=== PATIENT | female | born 1940 | race Caucasian/White ===

== ENCOUNTER 2022-06-19 08:17 | Inpatient (IN) ==
[2022-06-19] MEDS ORDERED: 0.9 % Sodium Chloride 1,000 ML IVC ONE (09:09)
[2022-06-19] MEDS ORDERED: Iopamidol - 370 500 ML MLS IVP ONE (09:16)
[2022-06-19 09:56] LABS: Basophils # 0.1 K/mcL (0.0-0.2); Basophils % 0.6 %; Eosinophils # 0.9 K/mcL (0.0-0.6); Eosinophils % 8.2 %; Hematocrit 35.1 % (35.3-44.9); Immature Granulocytes % 0.4 % (0-4); Lymphocytes % 17.9 %; Mean Corpuscular HGB Conc 31.3 g/dL (31.6-35.5); Mean Corpuscular Hemoglobin 27.2 pg (28.0-33.3); Mean Corpuscular Volume 86.9 fL (83.0-100.0); Mean Platelet Volume 10.4 fL (9.4-12.4); Monocytes # 1.4 K/mcL (0.0-1.3); Monocytes % 12.5 %; Neutrophils # 6.7 K/mcL (1.6-8.9); Platelet Count 265 K/mcL (140-400); Red Blood Count 4.04 M/mcL (3.82-4.97); Segmented Neutrophils % 60.4 %; White Blood Count 11.1 K/mcL (4.3-11.1)
[2022-06-19 10:25] LABS: BUN/Creatinine Ratio 26 (6-26); Blood Urea Nitrogen 27 mg/dL (8-23); Calcium 9.1 mg/dL (8.6-10.3); Carbon Dioxide 28 mEq/L (23-29); Chloride 105 mEq/L (98-107); Glucose 182 mg/dL (70-105); Magnesium 1.5 mg/dL (1.6-2.6); Osmolality,Calculated 300 (280-300); Potassium 3.7 mEq/L (3.5-5.1); Sodium 140 mEq/L (136-145); Troponin I < 0.03 ng/mL (< 0.04)
[2022-06-19 12:16] LABS: Bilirubin,Urine Negative (Negative); Blood,Urine Negative (Negative); Clarity,Urine Clear (Clear); Color,Urine Light-Yellow (Yellow); Glucose,Urine (UA) Normal (Normal); Ketones,Urine Negative (Negative); Leukocyte Esterase,Urine Moderate (Negative); Mucus,Urine Few per lpf (None-Few); Nitrite,Urine Positive (Negative); PH,Urine 5.5 pH Units (5.0-8.0); Protein,Urine Negative (Neg-Trace); Specific Gravity,Urine > 1.030 (1.010-1.025); Urobilinogen,Urine Normal (Normal)
[2022-06-19 12:53] LABS: Influenza A PCR Negative (Negative); Influenza B PCR Negative (Negative); Resp. Syncytial Virus PCR Negative (Negative); SARS-CoV-2 by PCR (In House) Negative (Negative)
[2022-06-19] MEDS ORDERED: D5% in Water 1,000 ML IVC PRN (16:21)
[2022-06-19] MEDS ORDERED: Naloxone 0.4 MG/ML INJ IVP PRN (16:21)
[2022-06-19] MEDS ORDERED: Dextrose Gel 15 GM/37.5 ML TUBE PO PRN ×2 (16:21)
[2022-06-19] MEDS ORDERED: *HR* Dextrose 50 % in Water (Syg) 50 ML SYRINGE IVP PRN (16:21)
[2022-06-19] MEDS: 0.9 % Sodium Chloride w KCl 20 MEQ/1,000 ML MLS IVC SCH (17:56)
[2022-06-19] MEDS: Insulin LISPRO 300 UNITS/3 ML VIAL SUBQ SCH ×2 (17:57→22:05)
[2022-06-19 19:39] LABS: Estimated Average Glucose 163 mg/dl; Hemoglobin A1C 7.3 %
[2022-06-19] MEDS: Temazepam 15 MG CAPSULE PO SCH (23:55)
[2022-06-20 04:50] LABS: Basophils % 0.3 %; Eosinophils # 0.6 K/mcL (0.0-0.6); Eosinophils % 6.7 %; Hematocrit 32.3 % (35.3-44.9); Hemoglobin 9.8 g/dL (11.5-15.4); Immature Granulocytes % 0.4 % (0-4); Lymphocytes % 21.5 %; Mean Corpuscular HGB Conc 30.3 g/dL (31.6-35.5); Mean Corpuscular Hemoglobin 26.8 pg (28.0-33.3); Mean Corpuscular Volume 88.3 fL (83.0-100.0); Mean Platelet Volume 10.1 fL (9.4-12.4); Monocytes # 1.1 K/mcL (0.0-1.3); Neutrophils # 5.4 K/mcL (1.6-8.9); Platelet Count 257 K/mcL (140-400); Red Blood Count 3.66 M/mcL (3.82-4.97); Red Cell Distribution Width 13.9 % (11.5-14.5); Segmented Neutrophils % 59.1 %; White Blood Count 9.1 K/mcL (4.3-11.1)
[2022-06-20 05:13] LABS: Albumin 3.2 g/dL (3.5-5.7); Albumin/Globulin Ratio 1.5 (1.1-2.2); Bilirubin,Total 0.5 mg/dL (0.3-1.0); Calcium 8.3 mg/dL (8.6-10.3); Globulin 2.2 g/dL (2.4-3.5); Magnesium 1.3 mg/dL (1.6-2.6); Phosphorous 3.5 mg/dL (2.7-4.5); Potassium 4.1 mEq/L (3.5-5.1); Total Protein 5.4 g/dL (6.4-8.9)
[2022-06-20] MEDS: Insulin LISPRO 300 UNITS/3 ML VIAL SUBQ SCH ×4 (07:30→19:53)
[2022-06-20] MEDS: cefTRIAXone 1,000 MG in 0.9 % Sodium Chloride Mini Bag 100 ML IVPB SCH (09:19)
[2022-06-20] MEDS: Azithromycin 250 MG TABLET PO SCH (11:45)
[2022-06-20] MEDS: Pantoprazole 40 MG VIAL IVP SCH (15:13)
[2022-06-20] MEDS: 0.9 % Sodium Chloride w KCl 20 MEQ/1,000 ML MLS IVC SCH (15:18)
[2022-06-20] MEDS: Ipratropium/Albuterol Neb 3 ML IH SCH ×2 (16:18→22:39)
[2022-06-20] MEDS: FAMOTIDINE 40 MG/5 ML PO SCH (19:53)
[2022-06-20] MEDS: Temazepam 15 MG CAPSULE PO SCH (19:53)
[2022-06-20] MEDS: Benzonatate 100 MG CAPSULE PO PRN (19:59)
[2022-06-21] MEDS: Ipratropium/Albuterol Neb 3 ML IH SCH ×4 (04:30→22:26)
[2022-06-21] MEDS: Benzonatate 100 MG CAPSULE PO PRN (05:54)
[2022-06-21 06:22] LABS: % Iron Saturation 7 % (15-50); Iron 16 mcg/dL (50-170); Transferrin 163 mg/dL (203-362)
[2022-06-21 06:50] LABS: Folate > 22.3 ng/mL (3.0-16.0); Vitamin B12 > 1500 pg/mL (250-1100)
[2022-06-21] MEDS: Insulin LISPRO 300 UNITS/3 ML VIAL SUBQ SCH ×4 (07:16→20:47)
[2022-06-21] MEDS: cefTRIAXone 1,000 MG in 0.9 % Sodium Chloride Mini Bag 100 ML IVPB SCH (08:22)
[2022-06-21] MEDS: Pantoprazole 40 MG VIAL IVP SCH (08:24)
[2022-06-21] MEDS: Azithromycin 250 MG TABLET PO SCH (08:26)
[2022-06-21] MEDS: FAMOTIDINE 40 MG/5 ML PO SCH ×2 (08:48→20:47)
[2022-06-21] MEDS ORDERED: E-Z-HD (BARIUM SULF) SUSPENSION PO ONE (11:45)
[2022-06-21] MEDS ORDERED: E-Z-PAQUE (BARIUM SULF) SUSP 1 BOTTLE PO ONE (11:45)
[2022-06-21] MEDS: Temazepam 15 MG CAPSULE PO SCH (20:47)
[2022-06-22] MEDS: Ipratropium/Albuterol Neb 3 ML IH SCH ×2 (03:52→10:19)
[2022-06-22] MEDS: Insulin LISPRO 300 UNITS/3 ML VIAL SUBQ SCH ×4 (07:15→20:33)
[2022-06-22] MEDS ORDERED: Furosemide 20 MG/2 ML VIAL IVP ONE (08:49)
[2022-06-22] MEDS: Azithromycin 250 MG TABLET PO SCH (09:51)
[2022-06-22] MEDS: Pantoprazole 40 MG VIAL IVP SCH (09:56)
[2022-06-22] MEDS: cefTRIAXone 1,000 MG in 0.9 % Sodium Chloride Mini Bag 100 ML IVPB SCH (09:58)
[2022-06-22] MEDS: FAMOTIDINE 40 MG/5 ML PO SCH ×2 (10:58→20:26)
[2022-06-22] MEDS: *HR* Metoprolol 5 MG/5 ML VIAL IVP PRN ×2 (12:49→20:28)
[2022-06-22] MEDS: Magnesium Oxide 400 MG TABLET PO SCH (14:00)
[2022-06-22 16:28] LABS: Calcium 8.4 mg/dL (8.6-10.3); Magnesium 1.2 mg/dL (1.6-2.6); Potassium 3.9 mEq/L (3.5-5.1)
[2022-06-22] MEDS ORDERED: *HR* Heparin 5,000 UNIT/ML VIAL IVP ONE (17:16)
[2022-06-22] MEDS ORDERED: *HR* Heparin 5,000 UNIT/ML VIAL IVP PRN ×2 (17:16)
[2022-06-22 17:49] LABS: Hematocrit 34.6 % (35.3-44.9); Hemoglobin 10.7 g/dL (11.5-15.4); Mean Corpuscular HGB Conc 30.9 g/dL (31.6-35.5); Mean Corpuscular Hemoglobin 27.2 pg (28.0-33.3); Platelet Count 326 K/mcL (140-400); Red Blood Count 3.93 M/mcL (3.82-4.97); White Blood Count 14.2 K/mcL (4.3-11.1)
[2022-06-22] MEDS ORDERED: *HR* Digoxin 0.25 MG TABLET PO SCH (18:00)
[2022-06-22 18:05] LABS: Heparin anti-factor XA UFH < 0.04 IU/mL (0.30-0.70); INR 1.3; Prothrombin Time 14.6 Seconds (9.4-12.1)
[2022-06-22 18:07] LABS: Activated Partial Thrombo Time 32.2 Seconds (26.0-36.0)
[2022-06-22] MEDS: Heparin 25,000UNIT/250ML 1/2NS 25,000 UNIT/250 ML IV.SOLN IVC SCH (18:23)
[2022-06-22] MEDS: *HR* Digoxin 0.5 MG/2 ML AMPUL IVP SCH (18:46)
[2022-06-22 18:49] LABS: Troponin I 0.03 ng/mL (< 0.04)
[2022-06-22] MEDS: Temazepam 15 MG CAPSULE PO SCH (20:26)
[2022-06-23] MEDS: *HR* Digoxin 0.5 MG/2 ML AMPUL IVP SCH ×3 (00:33→13:02)
[2022-06-23] MEDS: Insulin LISPRO 300 UNITS/3 ML VIAL SUBQ SCH ×4 (09:07→21:09)
[2022-06-23] MEDS: cefTRIAXone 1,000 MG in 0.9 % Sodium Chloride Mini Bag 100 ML IVPB SCH (09:14)
[2022-06-23] MEDS: FAMOTIDINE 40 MG/5 ML PO SCH ×2 (09:15→21:09)
[2022-06-23] MEDS: Azithromycin 250 MG TABLET PO SCH (09:16)
[2022-06-23] MEDS: Magnesium Oxide 400 MG TABLET PO SCH (09:16)
[2022-06-23] MEDS: Ondansetron 4 MG/2 ML VIAL IVP PRN (10:29)
[2022-06-23] MEDS ORDERED: Furosemide 20 MG/2 ML VIAL IVP ONE (11:46)
[2022-06-23] MEDS ORDERED: *HR* Enoxaparin 40 MG/0.4 ML SYRINGE SQ SCH (12:38)
[2022-06-23] MEDS: *HR* Metoprolol 5 MG/5 ML VIAL IVP PRN (15:27)
[2022-06-23] MEDS ORDERED: Warfarin perPT PO PRN (18:00)
[2022-06-23 18:24] LABS: INR 1.2; Prothrombin Time 13.7 Seconds (9.4-12.1)
[2022-06-23] MEDS ORDERED: *HR* Warfarin 2.5 MG TABLET PO ONE (18:52)
[2022-06-23] MEDS ORDERED: *HR* Metoprolol 5 MG/5 ML VIAL IVP ONE (18:55)
[2022-06-23] MEDS: Temazepam 15 MG CAPSULE PO SCH (21:09)
[2022-06-23] MEDS ORDERED: Albumin 25% 25gram/100mL 25 GM/100 ML IV.SOLN IVPB ONE (22:47)
[2022-06-24] MEDS: Heparin 25,000UNIT/250ML 1/2NS 25,000 UNIT/250 ML IV.SOLN IVC SCH (02:16)
[2022-06-24 06:15] LABS: Basophils % 0.5 %; Eosinophils # 0.8 K/mcL (0.0-0.6); Eosinophils % 10.6 %; Hematocrit 28.4 % (35.3-44.9); Immature Granulocytes % 0.6 % (0-4); Lymphocytes # 2.2 K/mcL (0.6-4.6); Lymphocytes % 27.9 %; Mean Corpuscular HGB Conc 29.9 g/dL (31.6-35.5); Mean Corpuscular Hemoglobin 26.6 pg (28.0-33.3); Mean Platelet Volume 10.2 fL (9.4-12.4); Monocytes % 12.6 %; Neutrophils # 3.8 K/mcL (1.6-8.9); Platelet Count 272 K/mcL (140-400); Red Blood Count 3.19 M/mcL (3.82-4.97); Red Cell Distribution Width 13.7 % (11.5-14.5); Segmented Neutrophils % 47.8 %
[2022-06-24 06:18] LABS: Hemoglobin 8.5 g/dL (11.5-15.4)
[2022-06-24 06:24] LABS: INR 1.3
[2022-06-24 06:39] LABS: Albumin 3.4 g/dL (3.5-5.7); Albumin/Globulin Ratio 1.9 (1.1-2.2); Bilirubin,Total 0.4 mg/dL (0.3-1.0); Calcium 8.3 mg/dL (8.6-10.3); Globulin 1.8 g/dL (2.4-3.5); Magnesium 1.9 mg/dL (1.6-2.6); Phosphorous 3.7 mg/dL (2.7-4.5); Potassium 3.8 mEq/L (3.5-5.1); Total Protein 5.2 g/dL (6.4-8.9)
[2022-06-24] MEDS ORDERED: Furosemide 20 MG/2 ML VIAL IVP ONE (08:16)
[2022-06-24] MEDS: Azithromycin 250 MG TABLET PO SCH (09:28)
[2022-06-24] MEDS: Magnesium Oxide 400 MG TABLET PO SCH (09:28)
[2022-06-24] MEDS: Insulin LISPRO 300 UNITS/3 ML VIAL SUBQ SCH ×4 (09:30→20:12)
[2022-06-24] MEDS: FAMOTIDINE 40 MG/5 ML PO SCH ×2 (09:36→20:11)
[2022-06-24] MEDS: Ondansetron 4 MG/2 ML VIAL IVP PRN (10:57)
[2022-06-24] MEDS ORDERED: *HR* Warfarin 2.5 MG TABLET PO ONE (18:00)
[2022-06-24] MEDS: Temazepam 15 MG CAPSULE PO SCH (20:09)
[2022-06-25 03:20] LABS: INR 1.4; Prothrombin Time 15.5 Seconds (9.4-12.1)
[2022-06-25] MEDS: Insulin LISPRO 300 UNITS/3 ML VIAL SUBQ SCH ×4 (08:01→21:02)
[2022-06-25 09:13] LABS: Hematocrit 33.6 % (35.3-44.9); Hemoglobin 9.9 g/dL (11.5-15.4); Mean Corpuscular HGB Conc 29.5 g/dL (31.6-35.5); Mean Corpuscular Hemoglobin 26.5 pg (28.0-33.3); Mean Corpuscular Volume 89.8 fL (83.0-100.0); Mean Platelet Volume 9.6 fL (9.4-12.4); Platelet Count 269 K/mcL (140-400); Red Blood Count 3.74 M/mcL (3.82-4.97); Red Cell Distribution Width 13.3 % (11.5-14.5); White Blood Count 8.2 K/mcL (4.3-11.1)
[2022-06-25] MEDS: Magnesium Oxide 400 MG TABLET PO SCH (09:28)
[2022-06-25] MEDS: Azithromycin 250 MG TABLET PO SCH (09:28)
[2022-06-25] MEDS: FAMOTIDINE 40 MG/5 ML PO SCH (09:29)
[2022-06-25] MEDS: Megestrol Acetate 400 MG/10 ML UDC PO SCH (09:30)
[2022-06-25] MEDS: Heparin 25,000UNIT/250ML 1/2NS 25,000 UNIT/250 ML IV.SOLN IVC SCH ×2 (16:36→16:37)
[2022-06-25] MEDS ORDERED: *HR* Warfarin 2.5 MG TABLET PO ONE (18:00)
[2022-06-25] MEDS ORDERED: FAMOTIDINE 40 MG/5 ML PO SCH (21:00)
[2022-06-25] MEDS: Temazepam 15 MG CAPSULE PO SCH (21:00)
[2022-06-26 02:27] LABS: Basophils % 0.5 %; Eosinophils # 0.7 K/mcL (0.0-0.6); Eosinophils % 7.7 %; Hematocrit 30.2 % (35.3-44.9); Hemoglobin 9.3 g/dL (11.5-15.4); Immature Granulocytes % 1.4 % (0-4); Lymphocytes # 2.4 K/mcL (0.6-4.6); Lymphocytes % 28.1 %; Mean Corpuscular HGB Conc 30.8 g/dL (31.6-35.5); Mean Corpuscular Hemoglobin 27.4 pg (28.0-33.3); Mean Corpuscular Volume 88.8 fL (83.0-100.0); Mean Platelet Volume 9.8 fL (9.4-12.4); Monocytes # 1.2 K/mcL (0.0-1.3); Monocytes % 14.6 %; Platelet Count 251 K/mcL (140-400); Red Cell Distribution Width 13.5 % (11.5-14.5); Segmented Neutrophils % 47.7 %; White Blood Count 8.4 K/mcL (4.3-11.1)
[2022-06-26 02:47] LABS: Albumin 3.3 g/dL (3.5-5.7); Albumin/Globulin Ratio 1.7 (1.1-2.2); Bilirubin,Total 0.4 mg/dL (0.3-1.0); Calcium 8.8 mg/dL (8.6-10.3); Total Protein 5.3 g/dL (6.4-8.9)
[2022-06-26 02:49] LABS: Prothrombin Time 22.4 Seconds (9.4-12.1)
[2022-06-26] MEDS: Insulin LISPRO 300 UNITS/3 ML VIAL SUBQ SCH ×4 (08:27→21:16)
[2022-06-26] MEDS: Megestrol Acetate 400 MG/10 ML UDC PO SCH (09:26)
[2022-06-26] MEDS: Magnesium Oxide 400 MG TABLET PO SCH (09:26)
[2022-06-26] MEDS: FAMOTIDINE 40 MG/5 ML PO SCH ×2 (09:34→18:48)
[2022-06-26 13:50] LABS: ABG Base Excess 5 mEq/L (-2 to 3); ABG HCO3 29 mEq/L (21-27); ABG Oxygen Saturation 99 % (95-98); ABG PCO2 44 mmHg (35-45); ABG PH 7.43 pH Units (7.32-7.45); ABG PO2 158 mmHg (85-104); ABG TCO2 31 mEq/L (20-26)
[2022-06-26] MEDS ORDERED: Lidocaine Viscous Oral Soln 15 ML SOLUTION MM PRN (14:26)
[2022-06-26] MEDS ORDERED: 0.9 % Sodium Chloride 500 ML IVC ONE (14:27)
[2022-06-26] MEDS: *HR* Midazolam HCl 5 MG/5 ML VIAL IVP PRN ×2 (15:00→15:02)
[2022-06-26] MEDS: *HR* FentaNYL (PF) 100 MCG/2 ML VIAL IVP PRN ×2 (15:00→15:02)
[2022-06-26] MEDS: Benzonatate 100 MG CAPSULE PO PRN (18:48)
[2022-06-26] MEDS: Temazepam 15 MG CAPSULE PO SCH (21:15)
[2022-06-26] MEDS: Heparin 25,000UNIT/250ML 1/2NS 25,000 UNIT/250 ML IV.SOLN IVC SCH (22:26)
[2022-06-27 06:38] LABS: Heparin anti-factor XA UFH 0.48 IU/mL (0.30-0.70)
[2022-06-27 06:39] LABS: INR 2.1; Prothrombin Time 22.8 Seconds (9.4-12.1)
[2022-06-27] MEDS: Insulin LISPRO 300 UNITS/3 ML VIAL SUBQ SCH ×4 (07:29→19:39)
[2022-06-27] MEDS: Magnesium Oxide 400 MG TABLET PO SCH (09:34)
[2022-06-27] MEDS: FAMOTIDINE 40 MG/5 ML PO SCH ×2 (09:35→19:39)
[2022-06-27] MEDS: Megestrol Acetate 400 MG/10 ML UDC PO SCH (11:08)
[2022-06-27] MEDS: Ipratropium/Albuterol Neb 3 ML IH PRN (14:24)
[2022-06-27] MEDS: Temazepam 15 MG CAPSULE PO SCH (19:38)
[2022-06-28 06:34] LABS: Basophils % 0.3 %; Eosinophils # 0.5 K/mcL (0.0-0.6); Eosinophils % 4.4 %; Hematocrit 28.2 % (35.3-44.9); Hemoglobin 8.5 g/dL (11.5-15.4); Lymphocytes # 2.5 K/mcL (0.6-4.6); Lymphocytes % 21.9 %; Mean Corpuscular HGB Conc 30.1 g/dL (31.6-35.5); Mean Corpuscular Volume 89.5 fL (83.0-100.0); Monocytes # 1.9 K/mcL (0.0-1.3); Monocytes % 16.2 %; Neutrophils # 6.5 K/mcL (1.6-8.9); Platelet Count 260 K/mcL (140-400); Red Blood Count 3.15 M/mcL (3.82-4.97); Red Cell Distribution Width 14.2 % (11.5-14.5); Segmented Neutrophils % 56.2 %; White Blood Count 11.5 K/mcL (4.3-11.1)
[2022-06-28 06:35] LABS: Heparin anti-factor XA UFH 0.4 IU/mL (0.30-0.70); INR 1.8; Prothrombin Time 20.1 Seconds (9.4-12.1)
[2022-06-28 06:36] LABS: Calcium 8.9 mg/dL (8.6-10.3); Potassium 3.9 mEq/L (3.5-5.1)
[2022-06-28] MEDS: Heparin 25,000UNIT/250ML 1/2NS 25,000 UNIT/250 ML IV.SOLN IVC SCH (07:03)
[2022-06-28] MEDS: Insulin LISPRO 300 UNITS/3 ML VIAL SUBQ SCH ×4 (07:15→20:16)
[2022-06-28] MEDS: Magnesium Oxide 400 MG TABLET PO SCH (08:48)
[2022-06-28] MEDS: FAMOTIDINE 40 MG/5 ML PO SCH ×2 (08:48→20:31)
[2022-06-28] MEDS ORDERED: 0.9 % Sodium Chloride 2,000 ML ONE (12:54)
[2022-06-28] MEDS ORDERED: Iopamidol - 370 200 ML INFUS..BTL ONE (12:54)
[2022-06-28] MEDS ORDERED: *HR* Heparin 10,000 UNIT/10 ML VIAL ONE (12:54)
[2022-06-28] MEDS ORDERED: Nitroglycerin 1,000 MCG/5 ML VIAL IV ONE (12:54)
[2022-06-28] MEDS ORDERED: Heparin 1,000 UNITS/500 mL 500 ML ONE (12:54)
[2022-06-28] MEDS: Megestrol Acetate 400 MG/10 ML UDC PO SCH (13:53)
[2022-06-28] MEDS ORDERED: *HR* FentaNYL (PF) 100 MCG/2 ML VIAL ONE (14:24)
[2022-06-28] MEDS ORDERED: *HR* Midazolam HCl 2 MG/2 ML VIAL ONE (14:24)
[2022-06-28] MEDS: Ipratropium/Albuterol Neb 3 ML IH PRN (16:01)
[2022-06-28] MEDS: *HR* Enoxaparin 60 MG/0.6 ML SYRINGE SQ SCH (18:24)
[2022-06-28] MEDS: Temazepam 15 MG CAPSULE PO SCH (20:12)
[2022-06-29] MEDS: *HR* Enoxaparin 60 MG/0.6 ML SYRINGE SQ SCH (05:12)
[2022-06-29] MEDS: Insulin LISPRO 300 UNITS/3 ML VIAL SUBQ SCH ×2 (07:36→12:31)
[2022-06-29] MEDS: Magnesium Oxide 400 MG TABLET PO SCH (09:29)
[2022-06-29] MEDS: Megestrol Acetate 400 MG/10 ML UDC PO SCH (09:34)
[2022-06-29 09:37] LABS: Hematocrit 28.7 % (35.3-44.9); Hemoglobin 8.6 g/dL (11.5-15.4)
[2022-06-29] MEDS: FAMOTIDINE 40 MG/5 ML PO SCH (11:24)
[2022-06-29 14:12] VITALS: BP 126/55; PULSE 82; TEMP 97.4; O2SAT 99
== END 2022-06-29 15:20 | DRG 871 ==
LOC: EMEROOARM 08:17 → 3BNU 08:17 → SUATTDRO 17:36 → 3BNU 18:07 → SUATTDRO 06-23 18:54
PROVIDERS: ADMIT Pharmacist; ATTEND Registered Nurse

== ENCOUNTER 2022-07-04 05:40 | Inpatient (IN) ==
[2022-07-04] MEDS ORDERED: CeFAZolin Syr 2,000MG/20 ML 2,000 MG/20 ML SYRINGE IVPB ONE (06:00)
[2022-07-04] MEDS ORDERED: Papaverine 60 MG/2 ML VIAL IVP ONE (06:00)
[2022-07-04] MEDS ORDERED: Chlorhexidine Rinse 15 ML MOUTHWASH MM SCH (06:00)
[2022-07-04] MEDS ORDERED: Aspirin 81 MG TAB.CHEW PO ONE (06:00)
[2022-07-04] MEDS ORDERED: Vancomycin 1,000 MG VIAL ONE (06:01)
[2022-07-04] MEDS ORDERED: NiCARdipine 2.5 MG/10 ML Syringe IVPB ONE (06:04)
[2022-07-04] MEDS ORDERED: DOBUTamine 1,000 MG/250 ML BAG ONE (06:04)
[2022-07-04] MEDS ORDERED: *HR* Propofol 200 MG/20 ML VIAL IVP ONE (06:07)
[2022-07-04] MEDS ORDERED: *HR* FentaNYL (PF) 1,000 MCG/20 ML VIAL ONE (06:07)
[2022-07-04] MEDS ORDERED: *HR* Midazolam HCl 5 MG/5 ML VIAL IVP ONE (06:07)
[2022-07-04] MEDS ORDERED: *HR* Rocuronium Bromide 50 MG/5 ML VIAL ONE (06:09)
[2022-07-04] MEDS ORDERED: Famotidine 20 MG/2 ML VIAL ONE (06:09)
[2022-07-04] MEDS ORDERED: Tranexamic Acid 1,000 MG/10 ML VIAL ONE (06:09)
[2022-07-04] MEDS ORDERED: *HR* Magnesium Sulfate 1 GM/2 ML VIAL ONE (06:09)
[2022-07-04] MEDS ORDERED: Lidocaine 2% Syringe 100 MG/5 ML ONE (06:10)
[2022-07-04] MEDS ORDERED: Heparin 1,000 UNITS/500 mL 500 ML ONE ×2 (06:18→07:13)
[2022-07-04] MEDS ORDERED: Iopamidol - 300 50 ML VIAL ONE (06:18)
[2022-07-04] MEDS ORDERED: *HR* Metoprolol 5 MG/5 ML VIAL IVP ONE (06:27)
[2022-07-04 07:00] LABS: Basophils # 0.1 K/mcL (0.0-0.2); Basophils % 0.6 %; Eosinophils # 0.4 K/mcL (0.0-0.6); Eosinophils % 2.9 %; Hematocrit 32.2 % (35.3-44.9); Hemoglobin 9.9 g/dL (11.5-15.4); Immature Granulocytes % 1.8 % (0-4); Lymphocytes # 2.1 K/mcL (0.6-4.6); Lymphocytes % 16.4 %; Mean Corpuscular HGB Conc 30.7 g/dL (31.6-35.5); Mean Corpuscular Hemoglobin 27.5 pg (28.0-33.3); Mean Corpuscular Volume 89.4 fL (83.0-100.0); Mean Platelet Volume 10.1 fL (9.4-12.4); Monocytes % 15.6 %; Platelet Count 333 K/mcL (140-400); Red Cell Distribution Width 15.2 % (11.5-14.5); Segmented Neutrophils % 62.7 %; White Blood Count 12.7 K/mcL (4.3-11.1)
[2022-07-04] MEDS ORDERED: Ringers Solution, Lactated 1,000 ML IVC SCH (07:00)
[2022-07-04] MEDS ORDERED: Heparin 15,000 UNIT in 0.9 % Sodium Chloride 500 ML IR ONE (07:00)
[2022-07-04] MEDS ORDERED: del Nido Cardioplegia Solution PF ONE ×2 (07:00)
[2022-07-04] MEDS ORDERED: Buckersberg's Blood Cardioplegia PF ONE (07:00)
[2022-07-04] MEDS ORDERED: Norepinephrine 4 MG in 0.9 % Sodium Chloride 250 ML IVC PRN (07:00)
[2022-07-04 07:22] LABS: INR 1.2; Prothrombin Time 13.1 Seconds (9.4-12.1)
[2022-07-04] MEDS ORDERED: Ondansetron 4 MG/2 ML VIAL IVP PRN (09:57)
[2022-07-04] MEDS ORDERED: MOM Conc 10 ML UD.LIQ PO PRN (09:57)
[2022-07-04] MEDS ORDERED: Acetaminophen 325 MG TABLET PO PRN (09:57)
[2022-07-04] MEDS ORDERED: Naloxone 0.4 MG/ML INJ IVP PRN (09:57)
[2022-07-04] MEDS ORDERED: Mag Hydrox/Al Hydrox/Simeth 30 ML UDC PO PRN (09:57)
[2022-07-04] MEDS ORDERED: Dextrose Gel 15 GM/37.5 ML TUBE PO PRN ×2 (09:59)
[2022-07-04] MEDS ORDERED: D5% in Water 1,000 ML IVC PRN (09:59)
[2022-07-04] MEDS ORDERED: *HR* Dextrose 50 % in Water (Syg) 50 ML SYRINGE IVP PRN (09:59)
[2022-07-04 10:15] LABS: Calcium 8.7 mg/dL (8.6-10.3); Potassium 4.1 mEq/L (3.5-5.1)
[2022-07-04] MEDS ORDERED: 0.9 % Sodium Chloride 1,000 ML IVC SCH (10:45)
[2022-07-04] MEDS: Insulin LISPRO 300 UNITS/3 ML VIAL SUBQ SCH ×2 (12:54→17:06)
[2022-07-04] MEDS: *HR* Enoxaparin 40 MG/0.4 ML SYRINGE SQ SCH ×2 (13:03→21:49)
[2022-07-04 13:19] LABS: Bacteria,Urine Few per hpf (None-Few); Bilirubin,Urine Negative (Negative); Blood,Urine Negative (Negative); Clarity,Urine Clear (Clear); Color,Urine Light-Yellow (Yellow); Glucose,Urine (UA) Normal (Normal); Ketones,Urine Negative (Negative); Leukocyte Esterase,Urine Small (Negative); Mucus,Urine Few per lpf (None-Few); Nitrite,Urine Negative (Negative); PH,Urine 6.5 pH Units (5.0-8.0); Protein,Urine Trace mg/dL (Neg-Trace); RBC,Urine 0-3 per hpf (0-3); Specific Gravity,Urine 1.007 (1.010-1.025); Squamous Epithelial Cell,Urine Few per hpf (None-Few); Urobilinogen,Urine Normal (Normal); WBC,Urine 15-30 per hpf (0-3)
[2022-07-04] MEDS ORDERED: Insulin LISPRO 300 UNITS/3 ML VIAL SUBQ SCH (21:00)
[2022-07-04] MEDS: Chlorhexidine Rinse 15 ML MOUTHWASH MM SCH (21:49)
[2022-07-04 22:56] LABS: Influenza A PCR Negative (Negative); Influenza B PCR Negative (Negative); Resp. Syncytial Virus PCR Negative (Negative)
[2022-07-04 22:58] LABS: SARS-CoV-2 by PCR (In House) Negative (Negative)
[2022-07-05 02:22] LABS: Hematocrit 29.6 % (35.3-44.9); Hemoglobin 8.7 g/dL (11.5-15.4); Mean Corpuscular HGB Conc 29.4 g/dL (31.6-35.5); Mean Corpuscular Hemoglobin 26.6 pg (28.0-33.3); Mean Corpuscular Volume 90.5 fL (83.0-100.0); Mean Platelet Volume 10.1 fL (9.4-12.4); Platelet Count 318 K/mcL (140-400); Red Blood Count 3.27 M/mcL (3.82-4.97); Red Cell Distribution Width 15.6 % (11.5-14.5); White Blood Count 14.8 K/mcL (4.3-11.1)
[2022-07-05 02:40] LABS: Calcium 8.5 mg/dL (8.6-10.3); Potassium 3.5 mEq/L (3.5-5.1)
[2022-07-05] MEDS: Chlorhexidine Rinse 15 ML MOUTHWASH MM SCH ×3 (05:48→19:59)
[2022-07-05] MEDS ORDERED: DOBUTamine 1,000 MG/250 ML BAG ONE (05:54)
[2022-07-05] MEDS ORDERED: Acetaminophen IV 0 MG/0 ML BAG IVPB ONE (05:54)
[2022-07-05] MEDS ORDERED: NiCARdipine 2.5 MG/10 ML Syringe IVPB ONE (05:54)
[2022-07-05] MEDS ORDERED: *HR* Propofol 200 MG/20 ML VIAL IVP ONE (06:00)
[2022-07-05] MEDS ORDERED: CeFAZolin Syr 2,000MG/20 ML 2,000 MG/20 ML SYRINGE IVPB ONE ×2 (06:00→06:05)
[2022-07-05] MEDS ORDERED: *HR* FentaNYL (PF) 1,000 MCG/20 ML VIAL ONE (06:00)
[2022-07-05] MEDS ORDERED: *HR* Midazolam HCl 5 MG/5 ML VIAL IVP ONE (06:00)
[2022-07-05] MEDS ORDERED: *HR* Rocuronium Bromide 50 MG/5 ML VIAL ONE ×2 (06:00→09:42)
[2022-07-05] MEDS ORDERED: Famotidine 20 MG/2 ML VIAL ONE (06:01)
[2022-07-05] MEDS ORDERED: Lidocaine 2% Syringe 100 MG/5 ML ONE (06:01)
[2022-07-05] MEDS ORDERED: Tranexamic Acid 1,000 MG/10 ML VIAL ONE (06:01)
[2022-07-05] MEDS ORDERED: *HR* Magnesium Sulfate 1 GM/2 ML VIAL ONE (06:01)
[2022-07-05] MEDS ORDERED: Aspirin 81 MG TAB.CHEW PO ONE ×2 (06:07→14:00)
[2022-07-05] MEDS ORDERED: Iopamidol - 300 50 ML VIAL ONE (06:09)
[2022-07-05] MEDS ORDERED: Papaverine 60 MG/2 ML VIAL IVP ONE (06:09)
[2022-07-05] MEDS ORDERED: Heparin 1,000 UNITS/500 mL 500 ML ONE (06:41)
[2022-07-05] MEDS ORDERED: Norepinephrine 4 MG in 0.9 % Sodium Chloride 250 ML IVC PRN (07:00)
[2022-07-05] MEDS ORDERED: Buckersberg's Blood Cardioplegia PF ONE (07:00)
[2022-07-05] MEDS ORDERED: del Nido Cardioplegia Solution PF ONE ×2 (07:00)
[2022-07-05] MEDS ORDERED: Heparin 15,000 UNIT in 0.9 % Sodium Chloride 500 ML IR ONE (07:00)
[2022-07-05 07:34] LABS: ABG Base Excess -4 mEq/L (-2 to 3); ABG Chloride 107 mEq/L (98-107); ABG Glucose 102 mg/dL (60-95); ABG HCO3 23 mEq/L (21-27); ABG Ionized Calcium 1.08 mmol/L (1.15-1.35); ABG Oxygen Saturation 100 % (95-98); ABG PCO2 48 mmHg (35-45); ABG PH 7.28 pH Units (7.32-7.45); ABG PO2 501 mmHg (85-104); ABG TCO2 24 mEq/L (20-26)
[2022-07-05 08:44] LABS: ABG Base Excess -1 mEq/L (-2 to 3); ABG Chloride 107 mEq/L (98-107); ABG Glucose 106 mg/dL (60-95); ABG HCO3 23 mEq/L (21-27); ABG Ionized Calcium 1.13 mmol/L (1.15-1.35); ABG Oxygen Saturation 100 % (95-98); ABG PCO2 33 mmHg (35-45); ABG PH 7.45 pH Units (7.32-7.45); ABG PO2 374 mmHg (85-104); ABG TCO2 24 mEq/L (20-26)
[2022-07-05] MEDS ORDERED: Chlorhexidine Rinse 15 ML MOUTHWASH MM SCH (09:00)
[2022-07-05] MEDS ORDERED: *HR* Dextrose 50 % in Water (Syg) 50 ML SYRINGE IVP PRN (09:11)
[2022-07-05] MEDS ORDERED: Calcium Gluconate 1gm/50mL 1 GM/50 ML BAG IVPB PRN (09:11)
[2022-07-05] MEDS ORDERED: Albumin Human 5% 12.5 GM/250 ML IV.SOLN IVPB PRN (09:11)
[2022-07-05] MEDS ORDERED: Albuterol 2.5 MG/3 ML NEBULIZER IH PRN (09:11)
[2022-07-05] MEDS ORDERED: Insulin Regular, Human 100 UNIT/ML IV PRN (09:11)
[2022-07-05] MEDS ORDERED: *HR* FentaNYL (PF) 100 MCG/2 ML VIAL IVP PRN (09:11)
[2022-07-05] MEDS ORDERED: Ondansetron 4 MG/2 ML VIAL IVP PRN (09:19)
[2022-07-05] MEDS ORDERED: Albumin Human 5% 12.5 GM/250 ML IV.SOLN ONE (09:31)
[2022-07-05] MEDS ORDERED: Calcium Gluconate 1,000 MG/10 ML VIAL ONE (09:41)
[2022-07-05] MEDS ORDERED: Protamine Sulfate 250 MG/25 ML VIAL IVP ONE (09:41)
[2022-07-05 09:46] LABS: ABG Base Excess 0 mEq/L (-2 to 3); ABG Chloride 106 mEq/L (98-107); ABG Glucose 136 mg/dL (60-95); ABG HCO3 24 mEq/L (21-27); ABG Ionized Calcium 1.13 mmol/L (1.15-1.35); ABG Oxygen Saturation 100 % (95-98); ABG PCO2 35 mmHg (35-45); ABG PH 7.45 pH Units (7.32-7.45); ABG PO2 582 mmHg (85-104); ABG TCO2 25 mEq/L (20-26)
[2022-07-05 10:19] LABS: ABG Base Excess -1 mEq/L (-2 to 3); ABG Chloride 109 mEq/L (98-107); ABG Glucose 197 mg/dL (60-95); ABG HCO3 26 mEq/L (21-27); ABG Ionized Calcium 1.69 mmol/L (1.15-1.35); ABG Oxygen Saturation 100 % (95-98); ABG PCO2 51 mmHg (35-45); ABG PH 7.31 pH Units (7.32-7.45); ABG PO2 468 mmHg (85-104); ABG TCO2 27 mEq/L (20-26)
[2022-07-05 10:51] LABS: ABG Base Excess -3 mEq/L (-2 to 3); ABG Chloride 109 mEq/L (98-107); ABG Glucose 163 mg/dL (60-95); ABG HCO3 24 mEq/L (21-27); ABG Ionized Calcium 1.45 mmol/L (1.15-1.35); ABG Oxygen Saturation 100 % (95-98); ABG PCO2 53 mmHg (35-45); ABG PH 7.26 pH Units (7.32-7.45); ABG PO2 576 mmHg (85-104); ABG TCO2 26 mEq/L (20-26)
[2022-07-05 11:01] LABS: ABG Base Excess 1 mEq/L (-2 to 3); ABG Chloride 103 mEq/L (98-107); ABG Glucose 148 mg/dL (60-95); ABG HCO3 24 mEq/L (21-27); ABG PCO2 29 mmHg (35-45); ABG PH 7.51 pH Units (7.32-7.45); ABG PO2 > 630 mmHg (85-104); ABG TCO2 24 mEq/L (20-26)
[2022-07-05 11:25] LABS: ABG Base Excess 1 mEq/L (-2 to 3); ABG Chloride 111 mEq/L (98-107); ABG Glucose 149 mg/dL (60-95); ABG HCO3 26 mEq/L (21-27); ABG Ionized Calcium 1.35 mmol/L (1.15-1.35); ABG Oxygen Saturation 100 % (95-98); ABG PCO2 41 mmHg (35-45); ABG PH 7.41 pH Units (7.32-7.45); ABG PO2 579 mmHg (85-104); ABG TCO2 27 mEq/L (20-26)
[2022-07-05 11:34] LABS: Chol/HDL Ratio 3.3 (0-4.9)
[2022-07-05] MEDS: Ipratropium/Albuterol Neb 3 ML IH SCH ×4 (11:39→23:40)
[2022-07-05] MEDS ORDERED: EPINEPHrine 5 MG in D5% in Water 250 ML IVC SCH (13:00)
[2022-07-05] MEDS ORDERED: EPINEPHrine 1 MG/ML VIAL ONE (13:11)
[2022-07-05 13:15] LABS: ABG Base Excess -4 mEq/L (-2 to 3); ABG Chloride 110 mEq/L (98-107); ABG Glucose 201 mg/dL (60-95); ABG HCO3 21 mEq/L (21-27); ABG Ionized Calcium 0.94 mmol/L (1.15-1.35); ABG Oxygen Saturation 100 % (95-98); ABG PCO2 36 mmHg (35-45); ABG PH 7.37 pH Units (7.32-7.45); ABG PO2 314 mmHg (85-104); ABG TCO2 22 mEq/L (20-26)
[2022-07-05] MEDS: Vasopressin 40 UNIT in D5% in Water 100 ML IVC SCH (13:22)
[2022-07-05] MEDS: DOBUTamine 1,000 MG/250 ML BAG IVC SCH (13:22)
[2022-07-05] MEDS ORDERED: ceFAZolin 1,000 MG in Water for inj. (sterile) 10 ML IVP ONE (13:38)
[2022-07-05 13:43] LABS: Hemoglobin 8.3 g/dL (11.5-15.4); Mean Corpuscular Volume 89.4 fL (83.0-100.0)
[2022-07-05 13:45] LABS: Hematocrit 25.2 % (35.3-44.9); Immature Platelets 3.5 % (1.1-6.1); Mean Corpuscular HGB Conc 32.9 g/dL (31.6-35.5); Mean Corpuscular Hemoglobin 29.4 pg (28.0-33.3); Mean Platelet Volume 10.1 fL (9.4-12.4); Monocytes # 1.7 K/mcL (0.0-1.3); Red Blood Count 2.82 M/mcL (3.82-4.97); Red Cell Distribution Width 14.5 % (11.5-14.5); White Blood Count 16.8 K/mcL (4.3-11.1)
[2022-07-05 13:47] LABS: Platelet Count 99 K/mcL (140-400)
[2022-07-05 13:48] LABS: ABG Base Excess 0 mEq/L (-2 to 3); ABG HCO3 24 mEq/L (21-27); ABG Oxygen Saturation 100 % (95-98); ABG PCO2 36 mmHg (35-45); ABG PH 7.43 pH Units (7.32-7.45); ABG PO2 367 mmHg (85-104); ABG TCO2 25 mEq/L (20-26); Blood Gas Modality ASSIST CONTROL; Blood Gas VT 350 cc
[2022-07-05 13:55] LABS: Activated Partial Thrombo Time 57.1 Seconds (26.0-36.0); INR 1.9
[2022-07-05 13:56] LABS: Prothrombin Time 20.9 Seconds (9.4-12.1)
[2022-07-05 14:03] LABS: Calcium 8.7 mg/dL (8.6-10.3); Magnesium 2.2 mg/dL (1.6-2.6); Potassium 3.8 mEq/L (3.5-5.1)
[2022-07-05] MEDS ORDERED: 0.9 % Sodium Chloride 250 ML ONE (14:06)
[2022-07-05 14:41] LABS: Lymphocytes # 2.4 K/mcL (0.6-4.6); Neutrophils # 12.8 K/mcL (1.6-8.9)
[2022-07-05 14:42] LABS: Hypochromasia Present (Not Present); Poikilocytosis 1+ (Not Present)
[2022-07-05 14:43] LABS: Platelet Estimate Slight Decrease (Normal); Polychromasia 1+ (Not Present)
[2022-07-05 15:10] LABS: ABG Base Excess 0 mEq/L (-2 to 3); ABG Chloride 111 mEq/L (98-107); ABG Glucose 154 mg/dL (60-95); ABG HCO3 27 mEq/L (21-27); ABG Ionized Calcium 1.38 mmol/L (1.15-1.35); ABG PCO2 52 mmHg (35-45); ABG PH 7.32 pH Units (7.32-7.45); ABG PO2 > 630 mmHg (85-104); ABG TCO2 29 mEq/L (20-26)
[2022-07-05] MEDS: Milrinone Premix 20 MG/100 ML 20 MG/100 ML BAG IVC SCH (15:17)
[2022-07-05] MEDS: CeFAZolin 2 GM/120 ML BAG IVPB SCH ×2 (15:18→23:00)
[2022-07-05] MEDS: niCARdipine 20 MG/200 ML MLS IVC SCH ×5 (15:24→23:01)
[2022-07-05] MEDS: *HR* Enoxaparin 40 MG/0.4 ML SYRINGE SQ SCH (15:25)
[2022-07-05] MEDS: Norepinephrine 4 MG/254 ML IV.SOLN IVC SCH ×2 (15:25→17:33)
[2022-07-05] MEDS: Furosemide 240 MG in 0.9 % Sodium Chloride 96 ML IVC SCH (15:30)
[2022-07-05] MEDS: Chlorothiazide Sodium 500 MG VIAL IVP SCH ×2 (15:57→19:59)
[2022-07-05] MEDS: Pantoprazole 40 MG VIAL IVP SCH (15:57)
[2022-07-05 16:26] LABS: ABG Base Excess 1 mEq/L (-2 to 3); ABG Chloride 111 mEq/L (98-107); ABG Glucose 174 mg/dL (60-95); ABG HCO3 25 mEq/L (21-27); ABG Ionized Calcium 1.13 mmol/L (1.15-1.35); ABG Oxygen Saturation 69 % (95-98); ABG PCO2 36 mmHg (35-45); ABG PH 7.45 pH Units (7.32-7.45); ABG PO2 34 mmHg (85-104); ABG TCO2 26 mEq/L (20-26); Blood Gas Modality ASSIST CONTROL
[2022-07-05] MEDS: Albumin Human 5% 12.5 GM/250 ML IV.SOLN IVPB PRN ×3 (17:32→19:18)
[2022-07-05 18:27] LABS: Red Cell Distribution Width 14.6 % (11.5-14.5)
[2022-07-05 18:29] LABS: Basophils % 0.3 %; Eosinophils % 0.3 %; Immature Granulocytes % 5.1 % (0-4); Immature Platelets 5.2 % (1.1-6.1); Lymphocytes # 0.4 K/mcL (0.6-4.6); Lymphocytes % 3.8 %; Mean Corpuscular HGB Conc 33.3 g/dL (31.6-35.5); Mean Corpuscular Volume 87.1 fL (83.0-100.0); Mean Platelet Volume 10.1 fL (9.4-12.4); Monocytes # 0.6 K/mcL (0.0-1.3); Monocytes % 5.6 %; Neutrophils # 9.2 K/mcL (1.6-8.9); Red Blood Count 3.79 M/mcL (3.82-4.97); Segmented Neutrophils % 84.9 %; White Blood Count 10.8 K/mcL (4.3-11.1)
[2022-07-05 18:36] LABS: Platelet Count 96 K/mcL (140-400)
[2022-07-05 19:11] LABS: Hypochromasia Present (Not Present); Platelet Estimate Decreased (Normal)
[2022-07-05] MEDS: Albumin 25% 25gram/100mL 25 GM/100 ML IV.SOLN IVPB SCH (20:23)
[2022-07-05] MEDS ORDERED: Famotidine 20 MG TABLET PO SCH (21:00)
[2022-07-05 21:02] LABS: Blood Gas VT 550 cc; VBG HCO3 27 mEq/L (21-27); VBG PCO2 40 mmHg (41-51); VBG PH 7.43 pH Units (7.32-7.42); VBG PO2 33 mmHg (25-50)
[2022-07-05 21:11] LABS: ABG Base Excess 0 mEq/L (-2 to 3); ABG HCO3 24 mEq/L (21-27); ABG Oxygen Saturation 97 % (95-98); ABG PCO2 36 mmHg (35-45); ABG PH 7.44 pH Units (7.32-7.45); ABG PO2 84 mmHg (85-104); ABG TCO2 25 mEq/L (20-26); Blood Gas Modality ASSIST CONTROL; Blood Gas VT 350 cc
[2022-07-05] MEDS: *HR* OxyCODONE/APAP 5/325 TABLET PO PRN (21:20)
[2022-07-05 22:13] LABS: Calcium 9.4 mg/dL (8.6-10.3)
[2022-07-05] MEDS: Potassium Chloride 40 MEQ/200 ML BAG IVPB PRN (22:21)
[2022-07-06] MEDS: Albumin 25% 25gram/100mL 25 GM/100 ML IV.SOLN IVPB SCH ×4 (01:02→19:20)
[2022-07-06 03:09] LABS: Lymphocytes % 5.4 %
[2022-07-06 03:11] LABS: Basophils % 0.2 %; Hematocrit 24.5 % (35.3-44.9); Hemoglobin 8.1 g/dL (11.5-15.4); Immature Platelets 7.4 % (1.1-6.1); Lymphocytes # 0.5 K/mcL (0.6-4.6); Mean Corpuscular HGB Conc 33.1 g/dL (31.6-35.5); Mean Corpuscular Hemoglobin 28.7 pg (28.0-33.3); Mean Corpuscular Volume 86.9 fL (83.0-100.0); Mean Platelet Volume 10.8 fL (9.4-12.4); Monocytes % 14.7 %; Neutrophils # 7.6 K/mcL (1.6-8.9); Red Blood Count 2.82 M/mcL (3.82-4.97); Segmented Neutrophils % 77.7 %; White Blood Count 9.8 K/mcL (4.3-11.1)
[2022-07-06 03:12] LABS: Monocytes # 1.4 K/mcL (0.0-1.3); Platelet Count 88 K/mcL (140-400)
[2022-07-06 03:17] LABS: INR 1.5; Prothrombin Time 17.1 Seconds (9.4-12.1)
[2022-07-06 03:19] LABS: Activated Partial Thrombo Time 30.4 Seconds (26.0-36.0)
[2022-07-06 03:27] LABS: Magnesium 2.5 mg/dL (1.6-2.6); Potassium 3.5 mEq/L (3.5-5.1)
[2022-07-06] MEDS: Ipratropium/Albuterol Neb 3 ML IH SCH ×6 (04:00→23:11)
[2022-07-06 04:12] LABS: ABG Base Excess 1 mEq/L (-2 to 3); ABG HCO3 24 mEq/L (21-27); ABG Oxygen Saturation 98 % (95-98); ABG PCO2 33 mmHg (35-45); ABG PH 7.48 pH Units (7.32-7.45); ABG PO2 99 mmHg (85-104); ABG TCO2 25 mEq/L (20-26); Blood Gas Modality ASSIST CONTROL; Blood Gas VT 350 cc
[2022-07-06] MEDS: Albumin Human 5% 12.5 GM/250 ML IV.SOLN IVPB PRN (04:13)
[2022-07-06] MEDS: Norepinephrine 4 MG/254 ML IV.SOLN IVC SCH (04:22)
[2022-07-06] MEDS: Milrinone Premix 20 MG/100 ML 20 MG/100 ML BAG IVC SCH (05:10)
[2022-07-06] MEDS: *HR* Enoxaparin 30 MG/0.3 ML SYRINGE SQ SCH (05:11)
[2022-07-06] MEDS ORDERED: 0.9 % Sodium Chloride 1,000 ML ONE (05:47)
[2022-07-06] MEDS: Pantoprazole 40 MG VIAL IVP SCH (07:43)
[2022-07-06] MEDS: Aspirin Enteric Coated 81 MG Tablet PO SCH (07:43)
[2022-07-06] MEDS: Chlorhexidine Rinse 15 ML MOUTHWASH MM SCH ×4 (07:43→20:05)
[2022-07-06] MEDS: CeFAZolin 2 GM/120 ML BAG IVPB SCH ×4 (08:00→23:00)
[2022-07-06] MEDS ORDERED: levETIRAcetam 1,000 MG in 0.9 % Sodium Chloride 100 ML IVPB ONE (10:02)
[2022-07-06] MEDS: Furosemide 240 MG in 0.9 % Sodium Chloride 96 ML IVC SCH (12:52)
[2022-07-06 17:43] LABS: Mean Corpuscular Volume 87.1 fL (83.0-100.0); Red Cell Distribution Width 15.4 % (11.5-14.5)
[2022-07-06 17:44] LABS: Hemoglobin 7.7 g/dL (11.5-15.4); Immature Platelets 7.7 % (1.1-6.1); Mean Corpuscular HGB Conc 33.5 g/dL (31.6-35.5); Mean Corpuscular Hemoglobin 29.2 pg (28.0-33.3); Mean Platelet Volume 10.8 fL (9.4-12.4); Red Blood Count 2.64 M/mcL (3.82-4.97); White Blood Count 12.4 K/mcL (4.3-11.1)
[2022-07-06] MEDS: niCARdipine 20 MG/200 ML MLS IVC SCH ×3 (17:44→23:01)
[2022-07-06] MEDS: DOBUTamine 1,000 MG/250 ML BAG IVC SCH (17:45)
[2022-07-06] MEDS: Vasopressin 40 UNIT in D5% in Water 100 ML IVC SCH (17:46)
[2022-07-06] MEDS ORDERED: ENOXAPARIN 60 MG/0.6 ML SQ SCH (18:00)
[2022-07-06] MEDS ORDERED: 0.9 % Sodium Chloride 500 ML ONE (18:12)
[2022-07-06 18:49] LABS: Potassium 3.3 mEq/L (3.5-5.1)
[2022-07-06] MEDS: Chlorothiazide Sodium 500 MG VIAL IVP SCH ×2 (19:18→20:21)
[2022-07-07] MEDS: Chlorothiazide Sodium 500 MG VIAL IVP SCH ×2 (00:21→12:58)
[2022-07-07] MEDS: Albumin 25% 25gram/100mL 25 GM/100 ML IV.SOLN IVPB SCH ×4 (01:01→19:22)
[2022-07-07] MEDS: *HR* Metoprolol 5 MG/5 ML VIAL IVP PRN (02:33)
[2022-07-07 03:19] LABS: Basophils % 0.1 %; Mean Corpuscular Hemoglobin 29.3 pg (28.0-33.3)
[2022-07-07 03:21] LABS: Hematocrit 32.6 % (35.3-44.9); Hemoglobin 11.1 g/dL (11.5-15.4); Immature Granulocytes % 1.1 % (0-4); Immature Platelets 8.9 % (1.1-6.1); Lymphocytes # 0.8 K/mcL (0.6-4.6); Mean Platelet Volume 11.1 fL (9.4-12.4); Monocytes # 2.3 K/mcL (0.0-1.3); Monocytes % 16.2 %; Neutrophils # 10.7 K/mcL (1.6-8.9); Red Blood Count 3.79 M/mcL (3.82-4.97); Segmented Neutrophils % 76.6 %; White Blood Count 13.9 K/mcL (4.3-11.1)
[2022-07-07 03:22] LABS: Platelet Count 75 K/mcL (140-400)
[2022-07-07 04:00] LABS: Calcium 9.2 mg/dL (8.6-10.3); Potassium 3.4 mEq/L (3.5-5.1)
[2022-07-07] MEDS: Milrinone Premix 20 MG/100 ML 20 MG/100 ML BAG IVC SCH ×2 (04:08→20:25)
[2022-07-07] MEDS: Ipratropium/Albuterol Neb 3 ML IH SCH ×5 (04:17→19:48)
[2022-07-07 04:47] LABS: ABG Base Excess 1 mEq/L (-2 to 3); ABG HCO3 24 mEq/L (21-27); ABG Oxygen Saturation 98 % (95-98); ABG PCO2 32 mmHg (35-45); ABG PH 7.48 pH Units (7.32-7.45); ABG PO2 99 mmHg (85-104); ABG TCO2 25 mEq/L (20-26); Blood Gas Modality ASSIST CONTROL; Blood Gas VT 350 cc
[2022-07-07] MEDS: *HR* Enoxaparin 30 MG/0.3 ML SYRINGE SQ SCH (05:01)
[2022-07-07] MEDS ORDERED: *HR* Heparin 5,000 UNIT/ML VIAL IVP PRN ×2 (06:58)
[2022-07-07] MEDS ORDERED: Amiodarone Premix 150 MG/100 ML BAG IVPB ONE (07:15)
[2022-07-07] MEDS: CeFAZolin 2 GM/120 ML BAG IVPB SCH (07:20)
[2022-07-07] MEDS: Pantoprazole 40 MG VIAL IVP SCH (07:21)
[2022-07-07] MEDS: Aspirin Enteric Coated 81 MG Tablet PO SCH (07:21)
[2022-07-07] MEDS: Chlorhexidine Rinse 15 ML MOUTHWASH MM SCH ×4 (07:21→20:17)
[2022-07-07] MEDS: DOBUTamine 1,000 MG/250 ML BAG IVC SCH (07:22)
[2022-07-07] MEDS: niCARdipine 20 MG/200 ML MLS IVC SCH ×5 (07:23→22:10)
[2022-07-07] MEDS ORDERED: Amiodarone Premix 360 MG/200 ML BAG IVC ONE (07:35)
[2022-07-07 08:27] LABS: ABG Base Excess 0 mEq/L (-2 to 3); ABG HCO3 24 mEq/L (21-27); ABG Oxygen Saturation 95 % (95-98); ABG PCO2 37 mmHg (35-45); ABG PH 7.42 pH Units (7.32-7.45); ABG PO2 73 mmHg (85-104); ABG TCO2 25 mEq/L (20-26); Blood Gas Modality CPAP/PS; Blood Gas Pressure Support 10 cm H2O
[2022-07-07] MEDS: Heparin 25,000UNIT/250ML 1/2NS 25,000 UNIT/250 ML IV.SOLN IVC SCH (08:36)
[2022-07-07 09:01] LABS: Heparin anti-factor XA UFH < 0.04 IU/mL (0.30-0.70)
[2022-07-07 09:05] LABS: INR 2.6; Prothrombin Time 28.3 Seconds (9.4-12.1)
[2022-07-07] MEDS: Dexmedetomidine HCl 400 MCG/100 ML MLS IVC SCH ×2 (10:12→19:52)
[2022-07-07] MEDS: Norepinephrine 4 MG/254 ML IV.SOLN IVC SCH ×2 (11:32→22:02)
[2022-07-07] MEDS ORDERED: *HR* Etomidate 20 MG/10 ML AMPUL IVP ONE (12:10)
[2022-07-07] MEDS ORDERED: *HR* Midazolam HCl 5 MG/5 ML VIAL IVP ONE (12:10)
[2022-07-07] MEDS: Vasopressin 40 UNIT in D5% in Water 100 ML IVC SCH (12:55)
[2022-07-07] MEDS: Amiodarone Premix 360 MG/200 ML BAG IVC SCH (12:57)
[2022-07-07 14:32] LABS: ABG Base Excess -1 mEq/L (-2 to 3); ABG HCO3 27 mEq/L (21-27); ABG Oxygen Saturation 90 % (95-98); ABG PCO2 58 mmHg (35-45); ABG PH 7.27 pH Units (7.32-7.45); ABG PO2 68 mmHg (85-104); ABG TCO2 29 mEq/L (20-26)
[2022-07-07] MEDS: FentaNYL (PF) 1,000 MCG/100 ML IV.SOLN IVC SCH (15:26)
[2022-07-07] MEDS: Furosemide 240 MG in 0.9 % Sodium Chloride 96 ML IVC SCH (15:27)
[2022-07-07] MEDS: Midazolam HCl 50 MG/50 ML IV.SOLN IVC SCH (15:27)
[2022-07-07 16:25] LABS: ABG Base Excess -1 mEq/L (-2 to 3); ABG HCO3 24 mEq/L (21-27); ABG Oxygen Saturation 96 % (95-98); ABG PCO2 41 mmHg (35-45); ABG PH 7.37 pH Units (7.32-7.45); ABG PO2 84 mmHg (85-104); ABG TCO2 25 mEq/L (20-26); Blood Gas Modality ASSIST CONTROL; Blood Gas VT 350 cc
[2022-07-07] MEDS ORDERED: *HR* Dextrose 50 % in Water (Syg) 50 ML SYRINGE IVP PRN (18:00)
[2022-07-07] MEDS ORDERED: D5% in Water 1,000 ML IVC PRN (18:00)
[2022-07-07] MEDS ORDERED: Dextrose Gel 15 GM/37.5 ML TUBE PO PRN ×2 (18:00)
[2022-07-07] MEDS: Insulin LISPRO 300 UNITS/3 ML VIAL SUBQ SCH ×2 (18:18→23:15)
[2022-07-07 19:39] LABS: Blood Gas VT 350 cc; VBG HCO3 25 mEq/L (21-27); VBG PCO2 39 mmHg (41-51); VBG PH 7.42 pH Units (7.32-7.42); VBG PO2 29 mmHg (25-50)
[2022-07-07 19:41] LABS: Hematocrit 36.8 % (35.3-44.9); Hemoglobin 12.4 g/dL (11.5-15.4)
[2022-07-07 19:45] LABS: ABG Base Excess -1 mEq/L (-2 to 3); ABG HCO3 23 mEq/L (21-27); ABG Oxygen Saturation 99 % (95-98); ABG PCO2 31 mmHg (35-45); ABG PH 7.47 pH Units (7.32-7.45); ABG PO2 109 mmHg (85-104); ABG TCO2 23 mEq/L (20-26); Blood Gas Modality ASSIST CONTROL; Blood Gas VT 350 cc
[2022-07-07 21:34] LABS: Calcium 8.3 mg/dL (8.6-10.3); Magnesium 1.7 mg/dL (1.6-2.6); Potassium 3.4 mEq/L (3.5-5.1)
[2022-07-07] MEDS ORDERED: Water for inj. (sterile) 10 ML ONE ×2 (23:42)
[2022-07-08] MEDS: Chlorothiazide Sodium 500 MG VIAL IVP SCH ×2 (00:01→13:34)
[2022-07-08] MEDS: Amiodarone Premix 360 MG/200 ML BAG IVC SCH ×2 (00:05→11:29)
[2022-07-08] MEDS: Ipratropium/Albuterol Neb 3 ML IH SCH ×7 (00:11→23:53)
[2022-07-08] MEDS: Albumin 25% 25gram/100mL 25 GM/100 ML IV.SOLN IVPB SCH ×4 (01:03→23:37)
[2022-07-08] MEDS: Milrinone Premix 20 MG/100 ML 20 MG/100 ML BAG IVC SCH (02:04)
[2022-07-08 02:11] LABS: Blood Gas VT 350 cc; VBG HCO3 25 mEq/L (21-27); VBG PCO2 36 mmHg (41-51); VBG PH 7.46 pH Units (7.32-7.42); VBG PO2 31 mmHg (25-50)
[2022-07-08 02:18] LABS: ABG Base Excess 1 mEq/L (-2 to 3); ABG HCO3 24 mEq/L (21-27); ABG Oxygen Saturation 98 % (95-98); ABG PCO2 32 mmHg (35-45); ABG PH 7.49 pH Units (7.32-7.45); ABG PO2 90 mmHg (85-104); ABG TCO2 25 mEq/L (20-26); Blood Gas Modality ASSIST CONTROL; Blood Gas VT 350 cc
[2022-07-08 03:23] LABS: VBG HCO3 23 mEq/L (21-27); VBG PCO2 33 mmHg (41-51); VBG PH 7.46 pH Units (7.32-7.42); VBG PO2 169 mmHg (25-50)
[2022-07-08 03:25] LABS: Basophils # 0.1 K/mcL (0.0-0.2); Basophils % 0.2 %; Eosinophils # 0.1 K/mcL (0.0-0.6); Eosinophils % 0.2 %; Hematocrit 32.1 % (35.3-44.9); Immature Granulocytes % 1.8 % (0-4); Immature Platelets 9.6 % (1.1-6.1); Lymphocytes # 3.2 K/mcL (0.6-4.6); Lymphocytes % 12.5 %; Mean Corpuscular HGB Conc 34.3 g/dL (31.6-35.5); Mean Corpuscular Hemoglobin 29.2 pg (28.0-33.3); Mean Corpuscular Volume 85.1 fL (83.0-100.0); Mean Platelet Volume 11.3 fL (9.4-12.4); Monocytes # 2.5 K/mcL (0.0-1.3); Monocytes % 9.7 %; Neutrophils # 19.1 K/mcL (1.6-8.9); Nucleated Red Blood Cells 0.1 /100 WBC (0); Red Blood Count 3.77 M/mcL (3.82-4.97); Red Cell Distribution Width 15.4 % (11.5-14.5); Segmented Neutrophils % 75.6 %; White Blood Count 25.3 K/mcL (4.3-11.1)
[2022-07-08 03:27] LABS: Platelet Count 86 K/mcL (140-400)
[2022-07-08 03:46] LABS: Calcium 8.5 mg/dL (8.6-10.3); Potassium 3.4 mEq/L (3.5-5.1)
[2022-07-08] MEDS: Norepinephrine 4 MG/254 ML IV.SOLN IVC SCH ×2 (05:03→09:00)
[2022-07-08] MEDS: Dexmedetomidine HCl 400 MCG/100 ML MLS IVC SCH ×2 (05:03→15:11)
[2022-07-08] MEDS: Insulin LISPRO 300 UNITS/3 ML VIAL SUBQ SCH ×4 (05:12→23:38)
[2022-07-08 07:43] LABS: ABG Base Excess 0 mEq/L (-2 to 3); ABG Chloride 111 mEq/L (98-107); ABG Glucose 168 mg/dL (60-95); ABG HCO3 23 mEq/L (21-27); ABG Ionized Calcium 1.25 mmol/L (1.15-1.35); ABG PCO2 33 mmHg (35-45); ABG PH 7.46 pH Units (7.32-7.45); ABG PO2 > 630 mmHg (85-104); ABG TCO2 24 mEq/L (20-26)
[2022-07-08] MEDS: Pantoprazole 40 MG VIAL IVP SCH ×2 (08:28→18:04)
[2022-07-08] MEDS: Aspirin Enteric Coated 81 MG Tablet PO SCH (08:28)
[2022-07-08] MEDS: Chlorhexidine Rinse 15 ML MOUTHWASH MM SCH ×3 (08:28→20:01)
[2022-07-08] MEDS: niCARdipine 20 MG/200 ML MLS IVC SCH ×4 (09:19→23:14)
[2022-07-08 09:45] LABS: Amorphous Sediment,Urine Few per hpf (None-Few); Bacteria,Urine Few per hpf (None-Few); Bilirubin,Urine Negative (Negative); Blood,Urine Small (Negative); Clarity,Urine Clear (Clear); Color,Urine Light-Yellow (Yellow); Glucose,Urine (UA) Normal (Normal); Hyaline Casts,Urine Few per lpf (None Seen); Ketones,Urine Negative (Negative); Leukocyte Esterase,Urine Negative (Negative); Mucus,Urine Few per lpf (None-Few); Nitrite,Urine Negative (Negative); PH,Urine 5.5 pH Units (5.0-8.0); Protein,Urine Trace mg/dL (Neg-Trace); Specific Gravity,Urine 1.012 (1.010-1.025); Squamous Epithelial Cell,Urine Few per hpf (None-Few); Urobilinogen,Urine Normal (Normal)
[2022-07-08] MEDS: Heparin 25,000UNIT/250ML 1/2NS 25,000 UNIT/250 ML IV.SOLN IVC SCH (10:08)
[2022-07-08] MEDS: DOBUTamine 1,000 MG/250 ML BAG IVC SCH ×2 (10:11→11:27)
[2022-07-08] MEDS: Piperacillin/Tazobactam 3.375 GM in 0.9 % Sodium Chloride Mini Bag 100 ML IVPB SCH ×2 (10:20→20:02)
[2022-07-08] MEDS: *HR* Metoprolol 5 MG/5 ML VIAL IVP PRN ×2 (10:49→18:51)
[2022-07-08] MEDS ORDERED: Norepinephrine 32 MG/250 ML IV.SOLN IVC PRN (11:22)
[2022-07-08 11:23] LABS: ABG Base Excess -1 mEq/L (-2 to 3); ABG HCO3 23 mEq/L (21-27); ABG Oxygen Saturation 98 % (95-98); ABG PCO2 34 mmHg (35-45); ABG PH 7.44 pH Units (7.32-7.45); ABG PO2 92 mmHg (85-104); ABG TCO2 24 mEq/L (20-26); Blood Gas VT 350 cc
[2022-07-08] MEDS ORDERED: 0.9 % Sodium Chloride 500 ML ONE (11:35)
[2022-07-08 11:51] LABS: INR 5.9; Prothrombin Time 64.8 Seconds (9.4-12.1)
[2022-07-08 12:13] LABS: Alanine Aminotransferase < 3 Units/L (7-52); Albumin 4.8 g/dL (3.5-5.7); Albumin/Globulin Ratio 5.3 (1.1-2.2); Alkaline Phosphatase 39 Units/L (34-104); Aspartate Amino Transferase 14 Units/L (13-39); Bilirubin,Direct 0.4 mg/dL (0.0-0.2); Bilirubin,Indirect 0.5 mg/dL (0.0-1.0); Bilirubin,Total 0.9 mg/dL (0.3-1.0); Globulin 0.9 g/dL (2.4-3.5); Total Protein 5.7 g/dL (6.4-8.9)
[2022-07-08] MEDS: FentaNYL (PF) 1,000 MCG/100 ML IV.SOLN IVC SCH (12:14)
[2022-07-08] MEDS: *HR* OxyCODONE/APAP 5/325 TABLET PO PRN (13:34)
[2022-07-08] MEDS: Vasopressin 40 UNIT in D5% in Water 100 ML IVC SCH (13:40)
[2022-07-08] MEDS: Midazolam HCl 50 MG/50 ML IV.SOLN IVC SCH (14:49)
[2022-07-08 14:58] LABS: INR 5.3; Prothrombin Time 58.7 Seconds (9.4-12.1)
[2022-07-08] MEDS: Furosemide 40 MG/4 ML VIAL IVP SCH ×2 (16:19→23:37)
[2022-07-08 16:36] LABS: INR 3.6
[2022-07-08] MEDS: Artificial Tears SOLN 15 ML BOTTLE BOTH EYES SCH (20:54)
[2022-07-08 21:38] LABS: INR 2.1; Prothrombin Time 23.7 Seconds (9.4-12.1)
[2022-07-08 21:43] LABS: Calcium 8.2 mg/dL (8.6-10.3); Magnesium 2.2 mg/dL (1.6-2.6); Potassium 3.7 mEq/L (3.5-5.1)
[2022-07-08] MEDS ORDERED: Water for inj. (sterile) 20 ML ONE (23:36)
[2022-07-08] MEDS: MethylPREDNISolone 40 MG/ML VIAL IVP SCH (23:37)
[2022-07-08 23:57] LABS: ABG Base Excess -2 mEq/L (-2 to 3); ABG HCO3 22 mEq/L (21-27); ABG Oxygen Saturation 99 % (95-98); ABG PCO2 31 mmHg (35-45); ABG PH 7.45 pH Units (7.32-7.45); ABG PO2 144 mmHg (85-104); ABG TCO2 23 mEq/L (20-26); Blood Gas Modality ASSIST CONTROL; Blood Gas VT 350 cc
[2022-07-09] MEDS: FentaNYL (PF) 1,000 MCG/100 ML IV.SOLN IVC SCH (01:21)
[2022-07-09] MEDS: Chlorothiazide Sodium 500 MG VIAL IVP SCH ×2 (01:23→13:34)
[2022-07-09] MEDS: Ipratropium/Albuterol Neb 3 ML IH SCH ×6 (04:02→23:33)
[2022-07-09 04:13] LABS: ABG Base Excess -3 mEq/L (-2 to 3); ABG HCO3 22 mEq/L (21-27); ABG Oxygen Saturation 99 % (95-98); ABG PCO2 34 mmHg (35-45); ABG PH 7.41 pH Units (7.32-7.45); ABG PO2 141 mmHg (85-104); ABG TCO2 23 mEq/L (20-26); Blood Gas Modality ASSIST CONTROL; Blood Gas VT 350 cc
[2022-07-09 04:16] LABS: VBG Ionized Calcium 0.93 mmol/L (1.15-1.35)
[2022-07-09 04:33] LABS: Basophils % 0.1 %; Eosinophils % 0.2 %; Hematocrit 30.1 % (35.3-44.9); Hemoglobin 10.1 g/dL (11.5-15.4); Immature Granulocytes % 0.7 % (0-4); Immature Platelets 13.4 % (1.1-6.1); Lymphocytes # 0.7 K/mcL (0.6-4.6); Lymphocytes % 5.8 %; Mean Corpuscular HGB Conc 33.6 g/dL (31.6-35.5); Mean Corpuscular Hemoglobin 28.8 pg (28.0-33.3); Mean Corpuscular Volume 85.8 fL (83.0-100.0); Mean Platelet Volume 12.1 fL (9.4-12.4); Monocytes # 0.9 K/mcL (0.0-1.3); Monocytes % 6.7 %; Red Blood Count 3.51 M/mcL (3.82-4.97); Red Cell Distribution Width 15.9 % (11.5-14.5); Segmented Neutrophils % 86.5 %; White Blood Count 12.8 K/mcL (4.3-11.1)
[2022-07-09 04:47] LABS: Neutrophils # 11.1 K/mcL (1.6-8.9); Platelet Count 51 K/mcL (140-400)
[2022-07-09 04:48] LABS: INR 1.5; Prothrombin Time 16.6 Seconds (9.4-12.1)
[2022-07-09 04:49] LABS: Activated Partial Thrombo Time 39.9 Seconds (26.0-36.0)
[2022-07-09 04:51] LABS: Alanine Aminotransferase < 3 Units/L (7-52); Albumin/Globulin Ratio 3.6 (1.1-2.2); Alkaline Phosphatase 42 Units/L (34-104); Aspartate Amino Transferase 11 Units/L (13-39); BUN/Creatinine Ratio 21 (6-26); Bilirubin,Direct 0.6 mg/dL (0.0-0.2); Bilirubin,Indirect 0.6 mg/dL (0.0-1.0); Bilirubin,Total 1.2 mg/dL (0.3-1.0); Blood Urea Nitrogen 41 mg/dL (8-23); Calcium 8.4 mg/dL (8.6-10.3); Carbon Dioxide 20 mEq/L (23-29); Chloride 103 mEq/L (98-107); Globulin 1.4 g/dL (2.4-3.5); Glucose 145 mg/dL (70-105); Magnesium 2.2 mg/dL (1.6-2.6); Osmolality,Calculated 303 (280-300); Phosphorous 2.5 mg/dL (2.7-4.5); Potassium 4.2 mEq/L (3.5-5.1); Sodium 140 mEq/L (136-145); Total Protein 6.4 g/dL (6.4-8.9)
[2022-07-09] MEDS: Insulin LISPRO 300 UNITS/3 ML VIAL SUBQ SCH ×4 (05:40→23:54)
[2022-07-09] MEDS: Pantoprazole 40 MG VIAL IVP SCH ×2 (05:40→18:10)
[2022-07-09] MEDS: niCARdipine 20 MG/200 ML MLS IVC SCH ×5 (05:40→17:24)
[2022-07-09 06:05] LABS: VBG Ionized Calcium 0.96 mmol/L (1.15-1.35)
[2022-07-09] MEDS: Dexmedetomidine HCl 400 MCG/100 ML MLS IVC SCH ×4 (08:54→23:55)
[2022-07-09] MEDS: Chlorhexidine Rinse 15 ML MOUTHWASH MM SCH ×2 (08:55→21:03)
[2022-07-09] MEDS: Aspirin Enteric Coated 81 MG Tablet PO SCH (08:56)
[2022-07-09] MEDS: MethylPREDNISolone 40 MG/ML VIAL IVP SCH ×3 (08:56→23:53)
[2022-07-09] MEDS: Furosemide 40 MG/4 ML VIAL IVP SCH ×3 (08:56→23:53)
[2022-07-09] MEDS: Albumin 25% 25gram/100mL 25 GM/100 ML IV.SOLN IVPB SCH ×3 (08:57→23:55)
[2022-07-09] MEDS: Piperacillin/Tazobactam 3.375 GM in 0.9 % Sodium Chloride Mini Bag 100 ML IVPB SCH ×2 (08:57→21:03)
[2022-07-09] MEDS: Amiodarone Premix 360 MG/200 ML BAG IVC SCH (09:34)
[2022-07-09] MEDS: Artificial Tears SOLN 15 ML BOTTLE BOTH EYES SCH ×5 (09:34→23:54)
[2022-07-09] MEDS: Docusate Oral Soln 100 MG/10 ML UDC GTUBE SCH ×2 (09:42→21:03)
[2022-07-09] MEDS ORDERED: *HR* Heparin 5,000 UNIT/ML VIAL IVP PRN ×2 (11:00)
[2022-07-09] MEDS ORDERED: Heparin 25,000UNIT/250ML 1/2NS 25,000 UNIT/250 ML IV.SOLN IVC SCH (11:00)
[2022-07-09] MEDS: Vasopressin 40 UNIT in D5% in Water 100 ML IVC SCH (13:04)
[2022-07-09] MEDS ORDERED: Water for inj. (sterile) 20 ML IV ONE (13:28)
[2022-07-09] MEDS: Midazolam HCl 50 MG/50 ML IV.SOLN IVC SCH (15:54)
[2022-07-09 17:18] LABS: Basophils % 0.1 %
[2022-07-09 17:19] LABS: Hematocrit 26.8 % (35.3-44.9); Hemoglobin 8.9 g/dL (11.5-15.4); Immature Granulocytes % 0.6 % (0-4); Immature Platelets 12.3 % (1.1-6.1); Lymphocytes # 0.8 K/mcL (0.6-4.6); Lymphocytes % 6.9 %; Mean Corpuscular HGB Conc 33.2 g/dL (31.6-35.5); Mean Corpuscular Hemoglobin 28.8 pg (28.0-33.3); Mean Corpuscular Volume 86.7 fL (83.0-100.0); Mean Platelet Volume 11.2 fL (9.4-12.4); Monocytes # 0.9 K/mcL (0.0-1.3); Monocytes % 7.9 %; Neutrophils # 9.2 K/mcL (1.6-8.9); Red Blood Count 3.09 M/mcL (3.82-4.97); Red Cell Distribution Width 15.9 % (11.5-14.5); Segmented Neutrophils % 84.5 %; White Blood Count 10.9 K/mcL (4.3-11.1)
[2022-07-09 17:22] LABS: Platelet Count 44 K/mcL (140-400)
[2022-07-09] MEDS ORDERED: *HR* Warfarin 0.5 MG TABLET PO ONE (18:00)
[2022-07-09] MEDS ORDERED: *HR* Warfarin 1 MG TABLET PO ONE (18:00)
[2022-07-09] MEDS ORDERED: Warfarin perPT PO PRN (18:00)
[2022-07-09] MEDS ORDERED: Water for inj. (sterile) 10 ML ONE (23:49)
[2022-07-10] MEDS: Amiodarone Premix 360 MG/200 ML BAG IVC SCH ×2 (00:09→14:11)
[2022-07-10] MEDS: Chlorothiazide Sodium 500 MG VIAL IVP SCH ×2 (01:02→14:05)
[2022-07-10] MEDS: Ipratropium/Albuterol Neb 3 ML IH SCH ×5 (03:59→19:47)
[2022-07-10 04:02] LABS: Basophils % 0.1 %; Red Cell Distribution Width 15.8 % (11.5-14.5)
[2022-07-10 04:04] LABS: VBG Ionized Calcium 0.89 mmol/L (1.15-1.35)
[2022-07-10 04:05] LABS: Hematocrit 24.9 % (35.3-44.9); Hemoglobin 8.2 g/dL (11.5-15.4); Immature Granulocytes % 0.6 % (0-4); Immature Platelets 13.5 % (1.1-6.1); Lymphocytes # 0.7 K/mcL (0.6-4.6); Lymphocytes % 6.9 %; Mean Corpuscular HGB Conc 32.9 g/dL (31.6-35.5); Mean Corpuscular Hemoglobin 28.3 pg (28.0-33.3); Mean Corpuscular Volume 85.9 fL (83.0-100.0); Mean Platelet Volume 12.3 fL (9.4-12.4); Monocytes # 0.9 K/mcL (0.0-1.3); Monocytes % 8.8 %; Neutrophils # 8.8 K/mcL (1.6-8.9); Segmented Neutrophils % 83.6 %; White Blood Count 10.5 K/mcL (4.3-11.1)
[2022-07-10 04:07] LABS: INR 1.5; Prothrombin Time 16.3 Seconds (9.4-12.1)
[2022-07-10 04:10] LABS: Activated Partial Thrombo Time 35.6 Seconds (26.0-36.0)
[2022-07-10 04:15] LABS: ABG Base Excess -2 mEq/L (-2 to 3); ABG HCO3 23 mEq/L (21-27); ABG Oxygen Saturation 97 % (95-98); ABG PCO2 38 mmHg (35-45); ABG PH 7.39 pH Units (7.32-7.45); ABG PO2 89 mmHg (85-104); ABG TCO2 24 mEq/L (20-26); Blood Gas VT 35 cc
[2022-07-10 04:23] LABS: Alanine Aminotransferase < 3 Units/L (7-52); Albumin 4.8 g/dL (3.5-5.7); Alkaline Phosphatase 43 Units/L (34-104); Aspartate Amino Transferase 10 Units/L (13-39); BUN/Creatinine Ratio 22 (6-26); Bilirubin,Direct 0.5 mg/dL (0.0-0.2); Bilirubin,Indirect 0.5 mg/dL (0.0-1.0); Blood Urea Nitrogen 52 mg/dL (8-23); Calcium 7.6 mg/dL (8.6-10.3); Carbon Dioxide 21 mEq/L (23-29); Chloride 102 mEq/L (98-107); Globulin 1.2 g/dL (2.4-3.5); Glucose 177 mg/dL (70-105); Magnesium 2.5 mg/dL (1.6-2.6); Osmolality,Calculated 308 (280-300); Phosphorous 3.5 mg/dL (2.7-4.5); Potassium 3.5 mEq/L (3.5-5.1); Sodium 140 mEq/L (136-145)
[2022-07-10 04:29] LABS: Platelet Count 48 K/mcL (140-400)
[2022-07-10] MEDS: niCARdipine 20 MG/200 ML MLS IVC SCH ×6 (04:53→20:25)
[2022-07-10] MEDS: Potassium Chloride 40 MEQ/200 ML BAG IVPB PRN (05:07)
[2022-07-10] MEDS ORDERED: Calcium Gluconate 1gm/50mL 1 GM/50 ML BAG IVPB PRN (05:30)
[2022-07-10] MEDS: Pantoprazole 40 MG VIAL IVP SCH ×2 (05:57→17:39)
[2022-07-10] MEDS: FentaNYL (PF) 1,000 MCG/100 ML IV.SOLN IVC SCH (07:40)
[2022-07-10] MEDS: DOBUTamine 1,000 MG/250 ML BAG IVC SCH (07:40)
[2022-07-10] MEDS: Piperacillin/Tazobactam 3.375 GM in 0.9 % Sodium Chloride Mini Bag 100 ML IVPB SCH ×2 (07:50→20:25)
[2022-07-10] MEDS: Furosemide 40 MG/4 ML VIAL IVP SCH (07:50)
[2022-07-10] MEDS: Docusate Oral Soln 100 MG/10 ML UDC GTUBE SCH ×2 (07:50→20:24)
[2022-07-10] MEDS: Chlorhexidine Rinse 15 ML MOUTHWASH MM SCH ×2 (07:50→20:24)
[2022-07-10] MEDS: MethylPREDNISolone 40 MG/ML VIAL IVP SCH ×2 (07:50→16:27)
[2022-07-10] MEDS: Aspirin Enteric Coated 81 MG Tablet PO SCH (07:50)
[2022-07-10] MEDS: Albumin 25% 25gram/100mL 25 GM/100 ML IV.SOLN IVPB SCH (07:51)
[2022-07-10] MEDS: Dexmedetomidine HCl 400 MCG/100 ML MLS IVC SCH ×2 (07:51→16:44)
[2022-07-10] MEDS: Insulin LISPRO 300 UNITS/3 ML VIAL SUBQ SCH ×3 (07:51→17:43)
[2022-07-10] MEDS ORDERED: Albumin Human 5% 12.5 GM/250 ML IV.SOLN IVPB ONE ×2 (08:23→08:40)
[2022-07-10] MEDS: Artificial Tears SOLN 15 ML BOTTLE BOTH EYES SCH ×3 (14:06→20:24)
[2022-07-10] MEDS: Vasopressin 40 UNIT in D5% in Water 100 ML IVC SCH (14:09)
[2022-07-10] MEDS: Midazolam HCl 50 MG/50 ML IV.SOLN IVC SCH (14:10)
[2022-07-10 16:00] LABS: ABG Base Excess -4 mEq/L (-2 to 3); ABG HCO3 21 mEq/L (21-27); ABG Oxygen Saturation 98 % (95-98); ABG PCO2 36 mmHg (35-45); ABG PH 7.38 pH Units (7.32-7.45); ABG PO2 105 mmHg (85-104); ABG TCO2 22 mEq/L (20-26); Blood Gas Modality ASSIST CONTROL; Blood Gas VT 350 cc
[2022-07-11] MEDS: Ipratropium/Albuterol Neb 3 ML IH SCH ×5 (00:07→14:34)
[2022-07-11] MEDS: Chlorothiazide Sodium 500 MG VIAL IVP SCH (01:05)
[2022-07-11] MEDS: Insulin LISPRO 300 UNITS/3 ML VIAL SUBQ SCH ×3 (01:05→12:04)
[2022-07-11] MEDS: MethylPREDNISolone 40 MG/ML VIAL IVP SCH ×2 (01:05→07:45)
[2022-07-11] MEDS: niCARdipine 20 MG/200 ML MLS IVC SCH ×2 (01:06→03:34)
[2022-07-11] MEDS: *HR* OxyCODONE/APAP 5/325 TABLET PO PRN ×2 (01:09→08:31)
[2022-07-11] MEDS ORDERED: Water for inj. (sterile) 10 ML ONE (01:17)
[2022-07-11 04:22] LABS: VBG Ionized Calcium 0.97 mmol/L (1.15-1.35)
[2022-07-11] MEDS: DOBUTamine 1,000 MG/250 ML BAG IVC SCH (04:28)
[2022-07-11 04:41] LABS: Basophils % 0.1 %; Hemoglobin 9.3 g/dL (11.5-15.4)
[2022-07-11 04:42] LABS: INR 1.2; Prothrombin Time 13.4 Seconds (9.4-12.1)
[2022-07-11 04:43] LABS: Activated Partial Thrombo Time 27.3 Seconds (26.0-36.0); Hematocrit 27.7 % (35.3-44.9); Immature Granulocytes % 1.5 % (0-4); Immature Platelets 15.9 % (1.1-6.1); Lymphocytes # 0.7 K/mcL (0.6-4.6); Lymphocytes % 3.7 %; Mean Corpuscular HGB Conc 33.6 g/dL (31.6-35.5); Mean Corpuscular Hemoglobin 28.3 pg (28.0-33.3); Mean Corpuscular Volume 84.2 fL (83.0-100.0); Mean Platelet Volume 12.8 fL (9.4-12.4); Monocytes # 2.1 K/mcL (0.0-1.3); Monocytes % 11.7 %; Neutrophils # 14.6 K/mcL (1.6-8.9); Red Blood Count 3.29 M/mcL (3.82-4.97); Red Cell Distribution Width 15.8 % (11.5-14.5); White Blood Count 17.6 K/mcL (4.3-11.1)
[2022-07-11 04:59] LABS: Platelet Count 66 K/mcL (140-400)
[2022-07-11 05:10] LABS: Alanine Aminotransferase < 3 Units/L (7-52); Albumin 4.6 g/dL (3.5-5.7); Albumin/Globulin Ratio 3.1 (1.1-2.2); Alkaline Phosphatase 54 Units/L (34-104); Aspartate Amino Transferase 9 Units/L (13-39); BUN/Creatinine Ratio 22 (6-26); Bilirubin,Direct 0.5 mg/dL (0.0-0.2); Bilirubin,Indirect 0.5 mg/dL (0.0-1.0); Blood Urea Nitrogen 68 mg/dL (8-23); Calcium 8.3 mg/dL (8.6-10.3); Carbon Dioxide 21 mEq/L (23-29); Chloride 100 mEq/L (98-107); Globulin 1.5 g/dL (2.4-3.5); Glucose 141 mg/dL (70-105); Magnesium 2.4 mg/dL (1.6-2.6); Osmolality,Calculated 310 (280-300); Phosphorous 2.8 mg/dL (2.7-4.5); Potassium 3.8 mEq/L (3.5-5.1); Sodium 139 mEq/L (136-145); Total Protein 6.1 g/dL (6.4-8.9)
[2022-07-11 05:17] LABS: ABG Base Excess -4 mEq/L (-2 to 3); ABG HCO3 18 mEq/L (21-27); ABG Oxygen Saturation 99 % (95-98); ABG PCO2 25 mmHg (35-45); ABG PH 7.48 pH Units (7.32-7.45); ABG PO2 140 mmHg (85-104); ABG TCO2 19 mEq/L (20-26); Blood Gas Modality SIMV; Blood Gas Pressure Support 10 cm H2O; Blood Gas VT 350 cc
[2022-07-11] MEDS: Pantoprazole 40 MG VIAL IVP SCH (05:58)
[2022-07-11 07:20] VITALS: TEMP 98.5
[2022-07-11] MEDS: Docusate Oral Soln 100 MG/10 ML UDC GTUBE SCH (07:43)
[2022-07-11] MEDS: Aspirin Enteric Coated 81 MG Tablet PO SCH (07:44)
[2022-07-11] MEDS: Chlorhexidine Rinse 15 ML MOUTHWASH MM SCH (07:44)
[2022-07-11] MEDS: Piperacillin/Tazobactam 3.375 GM in 0.9 % Sodium Chloride Mini Bag 100 ML IVPB SCH (07:45)
[2022-07-11] MEDS: Artificial Tears SOLN 15 ML BOTTLE BOTH EYES SCH ×2 (07:46→13:23)
[2022-07-11] MEDS: Dexmedetomidine HCl 400 MCG/100 ML MLS IVC SCH (09:02)
[2022-07-11 09:07] LABS: Bacteria,Urine Few per hpf (None-Few); Bilirubin,Urine Negative (Negative); Blood,Urine Large (Negative); Budding Yeast,Urine Many per hpf (None Seen); Clarity,Urine Ex.Turbid (Clear); Color,Urine Yellow (Yellow); Glucose,Urine (UA) Normal (Normal); Ketones,Urine Trace mg/dL (Negative); Leukocyte Esterase,Urine Small (Negative); Nitrite,Urine Negative (Negative); Protein,Urine 200 mg/dL (Neg-Trace); RBC,Urine TNTC per hpf (0-3); Specific Gravity,Urine 1.018 (1.010-1.025); Squamous Epithelial Cell,Urine Few per hpf (None-Few); Urobilinogen,Urine Normal (Normal); WBC,Urine 15-30 per hpf (0-3)
[2022-07-11] MEDS ORDERED: *HR* LORazepam 2 MG/ML VIAL IVP PRN (11:44)
[2022-07-11] MEDS ORDERED: *HR* FentaNYL (PF) 100 MCG/2 ML VIAL IVP PRN ×2 (11:44→13:36)
[2022-07-11] MEDS ORDERED: *HR* FentaNYL (PF) 100 MCG/2 ML VIAL ONE (11:44)
[2022-07-11] MEDS ORDERED: *HR* LORazepam 2 MG/ML VIAL ONE (11:44)
[2022-07-11 13:36] VITALS: BP 101/54; PULSE 101; O2SAT 85
[2022-07-11] MEDS ORDERED: Glycopyrrolate 0.2 MG/ML VIAL IVP PRN (13:36)
[2022-07-11] MEDS ORDERED: *HR* FentaNYL (PF) 100 MCG/2 ML VIAL IVP SCH (16:00)
[2022-07-11] MEDS ORDERED: *HR* LORazepam 2 MG/ML VIAL IVP SCH (17:30)
== END 2022-07-11 14:26 | disposition expired | DRG 219 ==
LOC: 2NNU 05:40 → SAMDAY 05:40 → SUATTDRO 12:07 → ICNU 07-05 07:41 → SUATTDRO 07-05 08:06
PROVIDERS: ADMIT Internal Medicine; ATTEND Thoracic Surgery (Cardiothoracic Vascular Surgery)